=== PATIENT | male | born 1955 | race Caucasian/White ===

== ENCOUNTER → 2024-05-01 15:04 | Outpatient (REF) | payer OTHER, SELFPAY ==
[2024-05-03 22:48] LABS: PSA Total 4.5 ng/mL (0.0-4.0)
== END ==
LOC: REG 15:04
PROVIDERS: ATTENDING PHYSICIAN Urology
DX: R97.20 Elevated prostate specific antigen [PSA] (principal)
CPT/HCPCS: 36415; 84153; 84154

== ENCOUNTER → 2024-06-05 15:07 | Outpatient (REF) | payer OTHER, SELFPAY | LOC: MRI 3T 15:07 | PROVIDERS: ATTENDING PHYSICIAN Urology; FAMILY PHYSICIAN Physician Assistant Medical | DX: R97.20 Elevated prostate specific antigen [PSA] (principal) | CPT/HCPCS: 72197; A9575 ==

== ENCOUNTER 2024-09-17 10:15 | Outpatient (RCR) | payer BC, SELFPAY | END 2024-09-17 23:59 | disposition home or self-care (01) | LOC: RPT 10:15 | PROVIDERS: ATTENDING PHYSICIAN Urology | DX: C61 Malignant neoplasm of prostate (principal); M62.89 Other specified disorders of muscle; Z73.6 Limitation of activities due to disability | CPT/HCPCS: 97162; 97530 ==

== ENCOUNTER 2024-09-20 06:09 | Day surgery (SDC) | payer BC, SELFPAY ==
[2024-09-17 08:54] LABS: Hematocrit 43.3 % (39.0-52.0); Hemoglobin 14.8 g/dL (13.0-18.0); Mean Corp Hgb Conc. 34.2 g/dL (33.0-37.0); Mean Corpuscular Volume 90.8 fL (80.0-94.0); Platelet Count 235 10^3/uL (130-400); Red Cell Dist. Width 13.2 % (11.5-14.5)
[2024-09-17 09:46] LABS: Blood Urea Nitrogen 20 mg/dl (9-20); Calcium 9.7 mg/dl (8.4-10.2); Carbon Dioxide 27 mmol/L (22-30); Chloride 109 mmol/L (98-107); Glucose 93 mg/dl (70-99); Potassium 5.1 mmol/L (3.5-5.1); Sodium 142 mmol/L (135-145); eGFR > 60.00
[2024-09-17 14:10] VITALS: BMI 29.9
[2024-09-20] VITALS (12 sets, daily range): BP systolic 103–171; BP diastolic 65–94; BMI 29.9
[2024-09-20] MEDS: DILAUDID 0.25 MG IV ×2 (13:43→14:13)
[2024-09-20 14:14] LABS: Hematocrit 41.4 % (39.0-52.0); Hemoglobin 14.2 g/dL (13.0-18.0)
[2024-09-20 14:32] LABS: Blood Urea Nitrogen 13 mg/dl (9-20); Calcium 8.4 mg/dl (8.4-10.2); Carbon Dioxide 22 mmol/L (22-30); Chloride 110 mmol/L (98-107); Estimated Creatinine Clearance 90 ml/min; Glucose 150 mg/dl (70-99); Potassium 4.2 mmol/L (3.5-5.1); Sodium 138 mmol/L (135-145); eGFR > 60.00
[2024-09-20] MEDS: NORMOSOL-R/PLASMALYTE-A 1000 IV ×2 (14:55→22:20)
--- NOTE | 2024-09-20 15:13 | PTCARENOTE ---
Pt arrived to unit from pacu drowsy, vital signs within normal limits on room air. Pt surgical sites c/d/i. Pt is at bedside, assisted nurse in answering admission questions.
[2024-09-20] MEDS: TORADOL 15 MG IV ×2 (15:35→21:11)
[2024-09-20] MEDS: LOVENOX 40 MG SC (16:59)
[2024-09-20] MEDS: PERCOCET 5/325 1 TABLET PO ×2 (19:22→23:33)
[2024-09-20] MEDS: SENOKOT 17.2 MG PO (19:22)
[2024-09-21 03:27] VITALS: BP 99/65
[2024-09-21] MEDS: TORADOL 15 MG IV ×2 (03:42→09:36)
[2024-09-21] MEDS: PERCOCET 5/325 1 TABLET PO (06:14)
[2024-09-21 07:15] VITALS: BP 106/63
[2024-09-21 07:22] LABS: Hematocrit 34.2 % (39.0-52.0); Hemoglobin 11.8 g/dL (13.0-18.0); Mean Corp Hgb Conc. 34.5 g/dL (33.0-37.0); Mean Corpuscular Volume 90.2 fL (80.0-94.0); Platelet Count 201 10^3/uL (130-400); Red Cell Dist. Width 13.3 % (11.5-14.5)
[2024-09-21 07:59] LABS: Blood Urea Nitrogen 15 mg/dl (9-20); Calcium 8.0 mg/dl (8.4-10.2); Carbon Dioxide 24 mmol/L (22-30); Chloride 107 mmol/L (98-107); Estimated Creatinine Clearance 80 ml/min; Glucose 94 mg/dl (70-99); Potassium 4.2 mmol/L (3.5-5.1); Sodium 135 mmol/L (135-145); eGFR > 60.00
[2024-09-21] MEDS: SENOKOT 17.2 MG PO (08:45)
--- NOTE | 2024-09-21 10:27 | CM ---
Reviewed the chart notes and spoke with the patient and his son at the bedside. CM consult for VN received. Discussed area VNs, patient agreeable with VN. Referral sent via [facility]. Patient resides with spouse in a two story home with no
steps to enter. Patient reports no DME/VN/SNF. Patient confirmed pharmacy of choice is [facility] [address] [place]. Patient is being discharged today. Patient's spouse to provide transportation home. CM continues to be available to patient/family
and is monitoring medical plan for needs at discharge.
Plan: Discharge to home with VN services.
[2024-09-21 11:20] VITALS: BP 107/71
== END 2024-09-21 12:19 | disposition home or self-care (01) ==
LOC: SDS 06:09
PROVIDERS: ATTENDING PHYSICIAN Urology; FAMILY PHYSICIAN Physician Assistant Medical
DX: C61 Malignant neoplasm of prostate (principal)
CPT/HCPCS: 55866; 38571; 36415; 80048; 85014; 85018; 85027; 86850; 86900; 86901; 88305; 88307; 88309; 93005

== ENCOUNTER 2024-10-15 12:22 | Outpatient (RCR) | payer BC, SELFPAY | END 2024-10-15 23:59 | disposition home or self-care (01) | LOC: RPT 12:22 | PROVIDERS: ATTENDING PHYSICIAN Urology | DX: C61 Malignant neoplasm of prostate (principal); M62.89 Other specified disorders of muscle; R10.2 Pelvic and perineal pain; Z73.6 Limitation of activities due to disability; Z98.890 Other specified postprocedural states; Z90.79 Acquired absence of other genital organ(s) | CPT/HCPCS: 97110; 97140; 97164; 97530 ==

== ENCOUNTER 2024-10-31 07:13 | Outpatient (RCR) | payer BC, SELFPAY | END 2024-10-31 23:59 | disposition home or self-care (01) | LOC: RPT 07:13 | PROVIDERS: ATTENDING PHYSICIAN Urology | DX: C61 Malignant neoplasm of prostate (principal); M62.89 Other specified disorders of muscle; R10.2 Pelvic and perineal pain; Z73.6 Limitation of activities due to disability; Z98.890 Other specified postprocedural states; Z90.79 Acquired absence of other genital organ(s) | CPT/HCPCS: 97110; 97112; 97530 ==

== ENCOUNTER → 2024-10-31 09:22 | Outpatient (REF) | payer BC, SELFPAY | LOC: REG 09:22 | PROVIDERS: ATTENDING PHYSICIAN Urology; FAMILY PHYSICIAN Physician Assistant Medical | DX: C61 Malignant neoplasm of prostate (principal) | CPT/HCPCS: 36415; 84153 ==